=== PATIENT | female | born 1975 | race Caucasian/White ===

== ENCOUNTER 2018-07-24 08:48 | Observation (INO) ==
--- NOTE | 2018-07-04 08:48 | PAT Medication Instructions ---
Medication Instructions Date of Service July 04, 2018 Home Medications cod liver oil 1 cap PO QPM ferrous sulfate 2 tab PO QPM hydrochlorothiazide 25 mg PO QPM control 1 tab PO QHS STOP taking 2 weeks before surgery cod liver oil 1 cap PO QPM Take morning of surgery NOTHING TO EAT OR DRINK AFTER MIDNIGHT Take evening before surgery ferrous sulfate 2 tab PO QPM hydrochlorothiazide 25 mg PO QPM control 1 tab PO QHS Other Notes If you have any questions please call us at [phone] or [phone] or [phone] or [phone]
--- NOTE | 2018-07-04 11:46 | Anesthesiology Consultation ---
Date of Service July 04, 2018 Assessment & Plan (1) Encounter for pre-operative examination: Chart Review Chart Review: Acceptable Risk for Surgery and Patient seen in Pre Admission Testing Labwork repeated on 07/17/18. Patient has been started on iron and H/H have improved (see lab section above). Per PCP's office, she is able to proceed with the surgery. Consults Requested none Teaching & Discussion Pre-Anesthesia Teaching/Discussion Notes: Instructed NPO after midnight before surgery, except medications with 15 cc of water. Medication instructions provided according to the PAT guidelines. History Surgery Operation Date: 07/24/18 07:30 Proposed Procedures p Robotic Total Laparoscopic Hysterectomy - Caitie Irizarry MD, FACOG Height/Weight Height: 5 ft 5 in Weight: 116 kg Allergies Allergy/AdvReac Type Severity Reaction Status Date / Time methyldopa Allergy Intermediate ANEMIA Verified 07/04/18 07:06 Medications Home Medications Medication Instructions Recorded Confirmed Last Taken Oral Contraceptive 1 tab PO HS 07/04/18 07/04/18 Unknown cod liver oil 1 cap PO QPM 07/04/18 07/04/18 Unknown ferrous sulfate 2 tab PO QPM 07/04/18 07/04/18 Unknown hydrochlorothiazide 25 mg PO QPM 07/04/18 07/04/18 Unknown Past Medical History Medical History Anemia Cardiac murmur NO PROBLEMS - SHE THINKS SHE WAS TOLD THIS YEARS AGO Hypertension Morbid obesity Past Family History Family History Grandfather (Maternal) Family history of diabetes mellitus Past Surgical History Surgical History H/O wisdom tooth extraction History of cholecystectomy LAP History of dilatation and curettage x~4 Past Anesthesia History No Hx of Anesthesia Complications and No Family Hx of Anesthesia Complications History of PONV No Motion Sickness Screening History of Motion Sickness: No Social History Smoking Status: Never smoker Do You Dip or Chew Tobacco: No Hx Alcohol Use: No Hx Substance Use: No substance use type: does not use Exercise / Class Metabolic Activity II 4-5 Yardwork/Stairs/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 Denies CP or SOB. ) Review of Systems Patient denies chest pain, shortness of breath, dyspnea on exertion, joint pain , reflux, cough, wheezing, palpitations. Physical Exam Vital Signs BP: 125/72 P: 80 R: 16 T: 98.7 SPO2: 97% on RA Constitutional + obese ENMT Thyromental Distance: > or= 3.5 Finger Breadths (3.5) Mallampati Class: III Neck normal visual inspection, trachea midline and + thick neck; neck extension not limited Respiratory normal respiratory effort Auscultation: lungs clear to auscultation bilaterally Cardiovascular Rate/Rhythm: regular rate and regular rhythm Heart Sounds: no murmur Vessels: no carotid bruit Neurologic moves all extremities Psychiatric Orientation: alert and oriented x 3 Testing Electrocardiogram Date: 07/04/18 Findings: + NSR @ (85) Laboratory Results 07/04/18 12:20 07/04/18 12:20 Blood Type A Positive 07/04/18 12:20 Antibody Screen NEGATIVE 07/04/18 12:20 Surgeons office called about low H/H. [facility] 07/17/18 WBC: 8.7 H/H: 10.6L/35.2L PLATELETS: 207
[2018-07-04 13:01] LABS: Basophils # (auto) 0.05 K/uL (0-0.2); Basophils % (auto) 0.6 %; Eosinophils # (auto) 0.19 K/uL (0-0.5); Eosinophils % (auto) 2.2 %; Hematocrit (blood only) 31.7 % (37-47); Hemoglobin 9.7 g/dL (12.0-16.0); Immature Granulocytes # (auto) 0.03 K/uL (0.00-0.02); Immature Granulocytes % (auto) 0.4 %; Lymphocytes # (auto) 1.48 K/uL (1.2-3.4); Lymphocytes % (auto) 17.3 %; Mean Corpuscular Hgb Conc 30.6 g/dL (32-36); Mean Corpuscular Volume 78.9 fL (80-100); Mean Platelet Volume 9.2 fL (7.4-10.4); Monocytes # (auto) 0.44 K/uL (0.11-0.59); Monocytes % (auto) 5.1 %; Neutrophils # (auto) 6.37 K/uL (1.4-6.5); Neutrophils % (auto) 74.4 %; Platelet Count 279 K/uL (130-400); RDW Coefficient of Variation 15.4 % (11.5-14.5); RDW Standard Deviation 44.6 fL (36.4-46.3); Red Blood Count 4.02 M/uL (4.2-5.4); White Blood Count 8.56 K/uL (4.8-10.8)
[2018-07-04 14:01] LABS: BUN Creatinine Ratio 11.2 (10-20); Calcium 8.6 mg/dl (8.5-10.1); Creatinine Clr Calc Pharmacy 150.4 ml/min; Est GFR (African American) 128.9; Est GFR (Non-African American) 111.2; Potassium 3.4 mmol/L (3.5-5.1)
[~2018-07-24 08:48] MED LIST: CEFAZOLIN 3000MG 65 ML IV SCH; LR 15ML/HR IV SCH; MIDAZOLAM HCL 1 MG/ML 2ML VIAL ONE; [UNRECOGNIZED DRUG - OTHER] IV SCH; fentaNYL citrate 100 MCG/2 ML VIAL ONE
[2018-07-24] MEDS ORDERED: BUPIVACAINE 0.5 % 5 MG/1 ML MPF 30ML VIAL ONE (10:09)
[2018-07-24] MEDS ORDERED: METHYLENE BLUE 0.5% 10 ML VIAL ONE (10:09)
--- NOTE | 2018-07-24 10:48 | History & Physical Bridge Note ---
Date of Service July 24, 2018 History & Physical Bridge Note I have examined the patient, reviewed the History & Physical and in the interval since the performance of the History & Physical I have noted the following changes of clinical significance: no changes noted
[2018-07-24] MEDS ORDERED: LABETALOL HCL IV 5 MG/ML 20ML IV PRN (11:01)
[2018-07-24] MEDS ORDERED: KETOROLAC 30 MG/ML VIAL IV PRN ×2 (11:01→13:34)
[2018-07-24] MEDS ORDERED: ONDANSETRON INJ 2 MG/ML 2 ML VIAL IV PRN (11:01)
[2018-07-24] MEDS ORDERED: fentaNYL citrate 100 MCG/2 ML VIAL IV PRN (11:01)
[2018-07-24] MEDS ORDERED: ATROPINE SULFATE 0.1 MG/ML 10ML SYR IV PRN (11:01)
[2018-07-24] MEDS ORDERED: HYDROmorphone INJ 2 MG/ML SYR/VIAL ONE (11:38)
[2018-07-24] MEDS ORDERED: TISSEEL FIBRIN SEALANT 4ML TOP ONE (11:50)
[2018-07-24] MEDS ORDERED: PROPOFOL IV EMULSION 10 MG/ML 20 ML VIAL IV ONE ×2 (12:02→13:15)
[2018-07-24] MEDS ORDERED: PHENYLEPHRINE 100MCG/ML 5ML SYR ONE (12:02)
[2018-07-24] MEDS ORDERED: ePHEDrine sulfate 50 MG/ML SYR ONE (12:02)
[2018-07-24] MEDS ORDERED: NEOSTIGMINE METHYLSULFATE 5 MG/5 ML SYR ONE (12:02)
[2018-07-24] MEDS ORDERED: KETOROLAC 30 MG/ML VIAL ONE (12:02)
[2018-07-24] MEDS ORDERED: LIDOCAINE HCL 2% 2 ML VIAL/AMP(20MG/ML) INFIL ONE (12:02)
[2018-07-24] MEDS ORDERED: GLYCOPYRROLATE 0.2 MG/ML VIAL ONE (12:02)
[2018-07-24] MEDS ORDERED: LARYING-O-JET KIT (LTA) ONE (12:02)
[2018-07-24] MEDS ORDERED: DEXAMETHASONE SOD INJ 4 MG/ML VIAL ONE (12:02)
[2018-07-24] MEDS ORDERED: ROCURONIUM BROMIDE 10 MG/ML 5 ML VIAL ONE (12:02)
[2018-07-24] MEDS ORDERED: ONDANSETRON INJ 2 MG/ML 2 ML VIAL ONE (12:02)
[2018-07-24] MEDS ORDERED: ACETAMINOPHEN 325 MG TAB PO PRN (13:34)
[2018-07-24] MEDS ORDERED: ZOLPIDEM TARTRATE 5 MG TAB PO PRN (13:34)
[2018-07-24] MEDS ORDERED: MEPERIDINE HCL 50 MG/ML CARP IV PRN (13:34)
[2018-07-24] MEDS ORDERED: IBUPROFEN 600 MG TAB PO PRN (13:34)
[2018-07-24] MEDS ORDERED: OXYCODONE/ACETAMINOPHEN 5mg/325mg TAB PO PRN ×2 (13:34)
[2018-07-24] MEDS ORDERED: BISACODYL 10 MG SUPP PR PRN (13:34)
[2018-07-24] MEDS ORDERED: MAGNESIUM HYDROXIDE SUSP 30 ML UDC PO PRN (13:34)
[2018-07-24] MEDS ORDERED: PROMETHAZINE HCL 12.5 MG in SODIUM CHLORIDE 0.9% 50 ML IV PRN (13:34)
[2018-07-24] MEDS ORDERED: SIMETHICONE 80 MG CHEW PO PRN (13:34)
--- NOTE | 2018-07-24 13:34 | Post Operative Brief Note ---
Immediate Post Op Note v1 Date of Surgery July 24, 2018 Pre & Post Diagnosis Operation Date: 07/24/18 10:40 Pre-Op Diagnosis: Menorrhagia with Irregular Cycle, Intramural Leiomyoma Post-Op Diagnosis: Menorrhagia with Irregular Cycle, Intramural Leiomyoma Procedure Operation Date: 07/24/18 10:40 Actual Procedures p Robotic Total Laparoscopic Hysterectomy, Bilateral Salpingectomy, Cystoscopy - Caitie Irizarry MD, FACOG Surgeon Caitie Irizarry MD, FACOG Database Marketing Manager none Estimated Blood Loss 20 Findings Consistent with Post-Op Diagnosis Drains Esteban Catheter
[2018-07-24] MEDS ORDERED: LACTATED RINGER'S 1,000 ML IV SCH (13:45)
--- NOTE | 2018-07-24 14:52 | Anesthesiology Progress Note ---
Date of Service July 24, 2018 Anesthesia Post Procedure Vital Signs Vital Signs: Temp Pulse Pulse Resp BP BP Pulse Ox 07/24/18 14:20 97 H 13 145/76 H 99 07/24/18 14:15 36.2 C L 82 17 135/77 98 07/24/18 14:05 105 H 24 155/92 H 98 07/24/18 13:55 96 H 17 163/88 H 100 07/24/18 13:45 100 H 16 128/83 98 07/24/18 13:37 36.7 C 80 17 132/77 96 07/24/18 09:32 37.3 C 84 18 129/89 96 Notes Mental Status: alert / awake / arousable Patient Amnestic to Procedure: Yes Nausea / Vomiting: adequately controlled Pain: adequately controlled Airway Patency, RR, SpO2: stable & adequate BP & HR: stable & adequate Hydration State: stable & adequate Anesthetic Complications: no major complications apparent
--- NOTE | 2018-07-24 18:16 | Operative Report ---
Post Operative Report Pre & Post Diagnosis Operation Date: 07/24/18 10:40 Pre-Op Diagnosis: Menorrhagia with Irregular Cycle, Intramural Leiomyoma Post-Op Diagnosis: Menorrhagia with Irregular Cycle, Intramural Leiomyoma Procedure Operation Date: 07/24/18 10:40 Actual Procedures p Robotic Total Laparoscopic Hysterectomy, Bilateral Salpingectomy - Caitie Irizarry MD, FACOG s Cystoscopy - Caitie Irizarry MD, FACOG Surgeon Caitie Irizarry MD, FACOG Oil Well Shooter none Estimated Blood Loss 20 Findings Consistent with Post-Op Diagnosis Specimens uterus, bilateral fallopian tubes, cervix Description of Procedure Patient given a general anesthetic and IV antibiotics preoperatively prepped and draped in dorsal lithotomy position in yellowfin Luis stirrups bladder drained with a Esteban catheter V care attached within the uterus and sewn in place Gloves changed and a supraumbilical incision made with scalpel dissecting down through open Quiñonez technique we dissected down through this obtains fat through the fascia and into the peritoneal cavity Blunt tipped Quiñonez trocar placed balloon inflated to stabilize the port CO2 gas used to insufflate the abdomen Findings there were some adhesions around the umbilicus over the omentum. Otherwise there were some adhesions of the left colon to the left pelvic sidewall in the pelvis however these were flimsy otherwise anatomy appeared normal We placed 2 robotic ports one in the left one on the right and 11 mm accessory port as well. Initially using the harmonic scalpel and a 5 mm scope I was able to lyse away the omental adhesions without difficulty once these were lysed away we then able to Dr. robot arm #1 was the monopolar oli on #2 bipolar [place] deep Trendelenburg position had been obtained and we began the procedure by identifying the ureter both the left and right sides it followed a normal course. Adhesions on the left side were easily lysed. Fallopian tubes were removed both the left and right side initially and then through the accessory port we then coagulated the blood supply distal to the left ovary this was well away from the left ureter this blood supply was then transected with the monopolar oli same process with the round ligament bladder flap was sharply dissected on the side uterine vessels identified these were then coagulated with the bipolar [place] once again will well away from the left ureter vessels were then cut with the monopolar oli. Same exact process was repeated on the right side once blood supply was controlled on both sides anterior colpotomy was made with monopolar oli colpotomy was then completed using the monopolar oli uterus was able to be removed in the vagina and removed fully a sponge and a glove was then placed On #1 became the Vibha needle lokie driver arm #2 became the cobra grasper using a 20V lock 90-day suture we closed the cuff initially the first 2 stitches broke. No undue tension was placed on them however they broke. A third stitch was then used and then this was able to close the cuff it should be noted we removed the needles from the prior to sutures and any tails left from the prior sutures. Cuff was closed with left to right back right to left ensuring full- thickness bites. Suture was cut so there was no tail needle removed the excess report after generous irrigation and suction to seal was applied 4 mL for hemostasis Cystoscopy was performed revealing a normal bladder good strong jets of bluish green dye as methylene blue had been given are identified from both the left and right ureter openings the bladder also had no sign of injury or sutures or damage Cystoscope removed and a new Esteban catheter placed. Sponge and the glove had been removed from the vagina as well. Instruments removed from the surgical sites in the abdomen robot undocked ports removed gas allowed to escape incisions injected with 0.5% Marcaine fascia closed with 0 Vicryl 4-0 subcuticular closures and Dermabond applied sponge and estimate counts correct I attest to the content of the Intraoperative Record and any orders documented therein. Any exceptions are noted below.
[2018-07-24] MEDS ORDERED: DOCUSATE SODIUM 100 MG CAP PO SCH (21:00)
--- NOTE | 2018-07-29 01:14 | Discharge Summary ---
HISTORY OF PRESENT ILLNESS: Jasmin Curry had a total laparoscopic hysterectomy on 07/24/2018. This was uncomplicated. She was discharged home the same day. At that time, she was ambulating, passing flatus, tolerating an oral diet, and pain was well controlled. She had no extremity pain. PHYSICAL EXAMINATION: VITAL SIGNS: Stable. She was afebrile. ABDOMEN: Soft, nontender. EXTREMITIES: Negative. IMPRESSION AND PLAN: Discharge home with instructions and pain medication. Told to contact the office with any concerns.
== END 2018-07-24 19:50 | disposition home or self-care (01) ==
LOC: ASU 08:48 → 4S2 08:48